=== PATIENT | female | born 1970 | race Caucasian/White ===

== ENCOUNTER 2021-03-28 08:04 | Emergency (ER) | payer MEDICAID ==
[~2021-03-28] VITALS: Ht 162.6 cm; Wt 63.5 kg
--- NOTE | 2021-03-28 08:25 | NUR ---
PT ARRIVED TO THE ER C/O HAVING A FEVER AND HIGH BLOOD PRESSURE FOR A WEEK. PT DID NOT HAVE A FEVER UPON ARRIVAL. PT STATED THAT SHE WAS NO DIAGNOSED WITH HYPERTENSTION BUT IS PRESCRIBED AMLODIPINE; SHES STATED THAT SHE WAS INSTRUCTED TO TAKE IT DAILY BUT SAYS SHE ONLY TAKES IT WHEN HER BLOOD PRESSURE IS HIGH; PATIENT IS NOT COMPLIANT WITH MEDICATION REGIMENT. PT STATED THAT SHE BROKE OUT IN A RASH ON 03/26 ON HER UPPER BODY AND UPPER THIGHS AND BROKE OUT ON HER FACE. PT TOOK A RAPID COVID TEST ON 03/24 AND IT WAS NEGATIVE. PT WAS SENT TO ER BED 6.
--- NOTE | 2021-03-28 08:32 | NUR ---
LAB AT BEDSIDE
[2021-03-28 08:43] LABS: BASOPHILS % (AUTO) 0.9 % (0.0-2.0); HEMATOCRIT 38 % (33-45); HEMOGLOBIN 12.9 g/dL (11.5-14.8); LYMPHOCYTES # (AUTO) 2.1 K/uL (0.8-4.8); LYMPHOCYTES % (AUTO) 39.1 % (20.0-44.0); MEAN CORPUSCULAR HGB CONC 34 g/dl (31.0-36.0); MEAN CORPUSCULAR VOLUME 89 fL (82-100); MONOCYTES # (AUTO) 0.7 K/uL (0.1-1.30); MONOCYTES % (AUTO) 13.3 % (2.0-12.0); NEUTROPHILS # (AUTO) 2.5 K/uL (1.8-8.9); NEUTROPHILS % (AUTO) 46.7 % (43.0-81.0); PLATELET COUNT (AUTO) 164 K/uL (150-450); WHITE BLOOD COUNT (AUTO) 5.3 K/uL (4.3-11.0)
--- NOTE | 2021-03-28 09:00 | NUR ---
PT COVID TEST WAS TAKEN AND SENT TO LAB.
[2021-03-28 09:03] LABS: CALCIUM, SERUM 8.5 mg/dL (8.5-10.1); CREATININE 0.8 mg/dL (0.6-1.3); POTASSIUM 3.8 mmol/L (3.5-5.1)
[2021-03-28 09:07] LABS: ALBUMIN 3.4 g/dL (3.4-5.0); BILIRUBIN,TOTAL 0.4 mg/dL (0.2-1.0); TOTAL PROTEIN, SERUM 7.3 g/dL (6.4-8.2)
[2021-03-28] MEDS ORDERED: predniSONE 50 MG TABLET PO ONE (09:30)
[2021-03-28] MEDS ORDERED: SULFAMETH/TRIMETH 800/160 MG 1 UDTAB TABLET PO ONE (09:30)
[2021-03-28] MEDS ORDERED: SULFAMETH/TRIMETH 800/160 MG 1 UDTAB TABLET ONE (09:37)
[2021-03-28] MEDS ORDERED: predniSONE 20 MG TABLET ONE (09:37)
[2021-03-28] MEDS ORDERED: SULF1TAB48 PO (09:43)
[2021-03-28 09:59] VITALS: BP 156/92
[2021-03-28] MEDS ORDERED: predniSONE 20 MG TABLET PO ONE (10:00)
== END 2021-03-28 10:00 | disposition home or self-care (01) ==
LOC: ER 08:07
DX: R21 Rash and other nonspecific skin eruption (principal); R50.9 Fever, unspecified; Z20.822 Contact with and (suspected) exposure to COVID-19; I10 Essential (primary) hypertension
CPT/HCPCS: 36415; 80053; 85025; 87040 ×2; 87426; 99283; C9803; J7512